=== PATIENT | male | born 1990 | race Two or more races ===

== ENCOUNTER 2016-10-10 01:38 | Emergency (ER) | payer SELFPAY ==
[~2016-10-10] VITALS: Ht 177.8 cm; Wt 81.6 kg
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
[2016-10-10] MEDS ORDERED: GELATIN SPONGE,ABSORBABLE 1 SPONGE SPONGE TP ONE (01:43)
--- NOTE | 2016-10-10 01:43 | NUR ---
16g left ac iv started. medicated patient per verbal order md Pineda; 1000ml ns bolus
--- NOTE | 2016-10-10 01:43 | NUR ---
started a second saline lock on the rac g16, blood drawn and sent to lab.
[2016-10-10] MEDS ORDERED: MORPHINE SULFATE INJ 4 MG/ML DISP.SYRIN ONE (01:44)
[2016-10-10] MEDS ORDERED: ONDANSETRON HCL/PF 4 MG/2 ML VIAL ONE (01:44)
--- NOTE | 2016-10-10 01:45 | NUR ---
PRESSURE DRESSINGS APPLIED TO LEFT LOWER BACK AND RIGHT FA PER MD.
--- NOTE | 2016-10-10 01:50 | NUR ---
transported pt to ct via [place] with monitoring analyst
[2016-10-10] MEDS ORDERED: TDAP [DIPH/PERTUSSIS/TET] 0.5 ML VIAL IM ONE ×2 (01:51→02:00)
[2016-10-10] MEDS ORDERED: IV NS 0.9% 250 ML IV ONE (01:51)
[2016-10-10] MEDS ORDERED: IOHEXOL-300 100 ML VIAL IV ONE (01:51)
[2016-10-10 01:52] LABS: BASOPHILS % (AUTO) 0.3 % (0.0-2.0); EOSINOPHILS # (AUTO) 0.1 /CMM (0.0-0.7); EOSINOPHILS % (AUTO) 2.2 % (0.0-6.0); HEMATOCRIT 48 % (39-51); HEMOGLOBIN 15.7 g/dL (13.5-17.5); LYMPHOCYTES # (AUTO) 3.7 /CMM (0.8-4.8); LYMPHOCYTES % (AUTO) 60.2 % (20.0-44.0); MEAN CORPUSCULAR HEMOGLOBIN 27 PG (26.0-33.0); MEAN CORPUSCULAR HGB CONC 33 g/dl (31.0-36.0); MEAN CORPUSCULAR VOLUME 82 fL (80-96); MONOCYTES # (AUTO) 0.4 /CMM (0.1-1.30); MONOCYTES % (AUTO) 7.3 % (2.0-12.0); NEUTROPHILS # (AUTO) 1.8 /CMM (1.8-8.9); PLATELET COUNT (AUTO) 253 /CMM (150-450); RDW COEFFICIENT OF VARIATION 13.3 (11.5-15.0); RED BLOOD CELL COUNT(AUTO) 5.79 MIL/uL (4.5-6.0); WHITE BLOOD COUNT (AUTO) 6.1 K/uL (4.3-11.0)
[2016-10-10] MEDS ORDERED: IV NS 0.9% 1,000 ML BAG IV ONE ×3 (02:00→02:30)
[2016-10-10] MEDS ORDERED: MORPHINE SULFATE INJ 2 MG/ML DISP.SYRIN IV ONE ×2 (02:00)
[2016-10-10] MEDS ORDERED: ONDANSETRON HCL/PF 4 MG/2 ML VIAL IVP ONE (02:00)
[2016-10-10 02:01] LABS: CALCIUM, SERUM 8.8 mg/dL (8.5-10.1); CREATININE 1.3 mg/dL (0.6-1.3); POTASSIUM 3.3 mmol/L (3.5-5.1)
--- NOTE | 2016-10-10 02:03 | NUR ---
PT RETURNED FROM CT.
--- NOTE | 2016-10-10 02:05 | NUR ---
second iv ns bolus running to the right ac g16, vss monitoring ongoing.
[2016-10-10 02:07] LABS: ALBUMIN 4.1 g/dL (3.4-5.0); BILIRUBIN,DIRECT 0.1 mg/dL (0.0-0.2); BILIRUBIN,TOTAL 0.3 mg/dL (0.2-1.0); INR 1.03 (0.87-1.13)
--- NOTE | 2016-10-10 02:07 | NUR ---
[employer] AT BEDSIDE
--- NOTE | 2016-10-10 02:16 | NUR ---
XRAY AT BEDSIDE
--- NOTE | 2016-10-10 02:22 | NUR ---
VERBAL ORDERS PER DR. STUART TO GIVE 1L NS BOLUS NOW BP 89/67 HR 115
--- NOTE | 2016-10-10 02:26 | NUR ---
RECHECKED BP, 118/[address] STUART MADE AWARE.
[2016-10-10] MEDS ORDERED: CEFAZOLIN 2 GM in IV D5W 100 ML IV ONE (02:30)
[2016-10-10] MEDS ORDERED: CEFAZOLIN 2 GM ONE (02:30)
[2016-10-10 02:35] LABS: APPEARANCE,URINE TURBID (CLEAR); BILIRUBIN,URINE NEGATIVE (NEGATIVE); BLOOD, URINE 3+ Ery/uL (NEGATIVE); COLOR,URINE RED (YELLOW); KETONES,URINE 1+ (NEGATIVE); LEUKOCYTE ESTERASE ,URINE 2+ (NEGATIVE); NITRITE, URINE POSITIVE (NEGATIVE); PH,URINE 7.5 (5.0-8.0); PROTEIN,URINE 3+ mg/dl (NEGATIVE); UGLUCOSE 1+ mg/dL (NEGATIVE)
[2016-10-10] MEDS ORDERED: PIPERACILLIN /TAZOBACTAM 3.375 G VIAL IV ONE (02:36)
[2016-10-10 02:37] LABS: RBC,URINE TOO NUMEROUS TO COUN /HPF (0-2)
[2016-10-10 02:38] LABS: BACTERIA,URINE None seen /HPF (None Seen); SQUAMOUS EPITHELIAL CELL,UR None Seen /HPF (None Seen); WBC,URINE NONE SEEN /HPF (0-3)
--- NOTE | 2016-10-10 02:48 | NUR ---
DR. STUART MADE AWARE PT NOTED WITH BLOOD FROM [facility]
--- NOTE | 2016-10-10 02:50 | NUR ---
FAXED CT REPORTS TO [facility] [place] FOR EMTALA TRANSFER
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
[2016-10-10] MEDS ORDERED: PIPERACILLIN /TAZOBACTAM 3.375 G in IV D5W 50 ML IV ONE (03:00)
[2016-10-10] MEDS ORDERED: HYDROMORPHONE 1 MG/1 ML DISP.SYRIN IV ONE (03:00)
--- NOTE | 2016-10-10 03:01 | NUR ---
called [facility] transfer line at [phone], spoke with Annabelle. Per Annabelle, fax over facesheet, CT, Labs, and await call [facility] [place]. faxed to [phone]. awaiting callback
--- NOTE | 2016-10-10 03:02 | NUR ---
CALLED [facility] TRANSFER LINE; SPOKE WITH KAI. FAXED CT REPORTS. [facility] TRANSFER LINE: [phone] [facility] FAX: [phone]
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
--- NOTE | 2016-10-10 03:21 | NUR ---
RECEIVED CALL FROM [facility] AT [place]. ACCEPTED BY DR. FERRER ([phone]); DR. STUART SPEAKING WITH ACCEPTING PHYSICIAN NOW. NURSE REPORT: [phone]. ACCEPTING NURSE PARISA MOHR
--- NOTE | 2016-10-10 03:28 | NUR ---
REPORT GIVEN TO PARISA ROBERTSON FROM [facility].
[2016-10-10 03:34] VITALS: BP 101/30
--- NOTE | 2016-10-10 03:35 | NUR ---
REPORT GIVEN TO RA 88 FOR CONTINUE OF CARE. PT TO BE TRANSFERED TO [facility] VIA [facility]. [employer] WITH ALL BELONGINGS.
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
== END 2016-10-10 03:41 | disposition short-term general hospital (02) ==
LOC: EDBD 01:40 → ER 01:40
DX: S31.000A Unspecified open wound of lower back and pelvis without penetration into retroperitoneum, initial encounter (principal); N32.89 Other specified disorders of bladder; W34.00XA Accidental discharge from unspecified firearms or gun, initial encounter; Y93.89 Activity, other specified; Y92.89 Other specified places as the place of occurrence of the external cause; Y99.8 Other external cause status
CPT/HCPCS: 36415; 71260; 73090; 74160; 80048; 80076; 80305; 81001; 85025; 85730; 86850; 87086; 90715; 93005; 96361; 96365; 96374; 96375; 99291; 99292; A4606; G0480; J0690 ×2; J2270; J2405; J2543 ×2; J7030; J7050; J7060 ×3; Q9967; Z7610; 81000-TC